=== PATIENT | female | born 1990 | race Two or more races ===

== ENCOUNTER 2022-01-08 03:49 | Emergency (ER) | payer OTHER ==
[~2022-01-08] VITALS: Ht 149.9 cm; Wt 63.2 kg
[2022-01-08 05:04] LABS: Urine Bacteria FEW /hpf (None Seen); Urine Blood 1+ /uL (Negative); Urine Mucus FEW (None Seen); Urine Specific Gravity 1.033 (1.001-1.035); Urine WBC 40 /hpf (0 - 5)
[2022-01-08 07:25] VITALS: BP 111/72
[2022-01-08] MEDS ORDERED: ACETAMINOPHEN 325 MG TAB PO ONE (07:30)
[2022-01-08] MEDS ORDERED: SODIUM CHLORIDE 0.9% 1,000 ML IV ONE (07:30)
[2022-01-08] MEDS ORDERED: cefTRIAXone 1GM/50ML D5W 50 ML IV ONE (07:30)
[2022-01-08] MEDS ORDERED: ONDANSETRON ODT 4 MG TAB PO ONE (07:30)
[2022-01-08] MEDS ORDERED: SULF800T7 PO (07:34)
[2022-01-08] MEDS ORDERED: ONDA-144 PO (07:34)
[2022-01-08] MEDS ORDERED: ACET-1158 PO (07:34)
== END 2022-01-08 09:12 | disposition home or self-care (01) ==
LOC: ER 03:55
DX: U07.1 COVID-19 (principal); N39.0 Urinary tract infection, site not specified; Z79.899 Other long term (current) drug therapy
CPT/HCPCS: 36415; 81001; 81025; 87426; 87804; 96365; 99284; J0696; J7040; Q0162